=== PATIENT | female | born 1960 | race Caucasian/White ===

== ENCOUNTER 2023-11-15 12:37 | Inpatient (IN) | payer OTHER ==
[2023-11-15 13:23] VITALS: BMI 30.4
[2023-11-15] MEDS ORDERED: MAG HYDROX/AL HYDROX/SIMETH 30 ML UNIT-DOSE CUP PO PRN (14:59)
[2023-11-15] MEDS ORDERED: DICYCLOMINE HCL 10 MG CAPSULE PO PRN (14:59)
[2023-11-15] MEDS ORDERED: ACETAMINOPHEN 325 MG TABLET (FP) PO PRN (14:59)
[2023-11-15] MEDS ORDERED: IBUPROFEN 400 MG TABLET (FP) PO PRN (14:59)
[2023-11-15] MEDS ORDERED: METHOCARBAMOL 500 MG TABLET PO PRN (14:59)
[2023-11-15] MEDS ORDERED: hydrOXYzine PAMOATE 25 MG CAPSULE (FP) PO PRN (14:59)
[2023-11-15] MEDS ORDERED: LOPERAMIDE HCL 2 MG CAPSULE PO PRN (14:59)
[2023-11-15] MEDS ORDERED: BISMUTH SUBSALICYLATE 524 MG/30 ML PO PRN (14:59)
[2023-11-15] MEDS ORDERED: IBUPROFEN 600 MG TABLET (FP) PO PRN (14:59)
[2023-11-15] MEDS ORDERED: NALOXONE HCL (KLOXXADO) 8 MG SPRAY NS PRN (14:59)
[2023-11-15] MEDS ORDERED: MAGNESIUM HYDROX 2400MG/30ML ORAL SUSPENSION 30 ML CUP PO PRN (14:59)
[2023-11-15] MEDS ORDERED: BENZOCAINE/MENTHOL (CHLORASEPTIC ) LOZENGE MM PRN (14:59)
[2023-11-15] MEDS ORDERED: NALOXONE HCL 0.4 MG/ML VIAL IM PRN (14:59)
[2023-11-15] MEDS ORDERED: POLYETHYLENE GLYCOL (HEALTHYLAX) 3350 17 GM PACKET PO PRN (14:59)
[2023-11-15] MEDS ORDERED: guaiFENesin 600 MG TABLET.ER (FP) PO PRN (14:59)
[2023-11-15] MEDS ORDERED: ONDANSETRON *ODT* 4 MG TABLET SL PRN (14:59)
[2023-11-15] MEDS ORDERED: BENZONATATE 200 MG CAPSULE PO PRN (14:59)
[2023-11-15] MEDS ORDERED: LORazepam 1 MG TABLET PO PRN (14:59)
[2023-11-15] MEDS ORDERED: PRENATAL VITAMINS W/ FOLIC ACID TABLET (FP) PO ONE (15:53)
[2023-11-15] MEDS ORDERED: LORazepam 2 MG TABLET ONE (15:53)
[2023-11-15] MEDS: LORazepam 2 MG TABLET PO ONE (15:55)
[2023-11-15] MEDS: PRENATAL VITAMINS W/ FOLIC ACID TABLET (FP) PO SCH (15:56)
[2023-11-15] MEDS: PANTOPRAZOLE 40 MG TABLET PO SCH (17:30)
[2023-11-15] MEDS: ALBUTEROL SO4 HFA INHALER IH SCH (17:30)
[2023-11-15] MEDS: LORazepam 2 MG TABLET PO SCH (19:08)
[2023-11-15] MEDS: MELATONIN 5 MG TABLETS PO SCH (22:33)
[2023-11-15] MEDS: SPIRONOLACTONE 25 MG TABLET PO SCH (22:34)
[2023-11-15] MEDS: LURASIDONE HCL 40 MG TABLET PO SCH (22:34)
[2023-11-15] MEDS: DULoxetine HCL 20 MG CAPSULE.DR PO SCH (22:34)
[2023-11-15] MEDS: THIAMINE HCL 100 MG TABLET (FP) PO SCH (22:34)
[2023-11-15] MEDS: APIXABAN 5 MG TABLET PO SCH (22:34)
[2023-11-15] MEDS: RIFAXIMIN 550 MG TABLET PO SCH ×2 (23:28)
[2023-11-16] MEDS: LEVOTHYROXINE NA 25 MCG TABLET (FP) PO SCH (07:26)
[2023-11-16] MEDS: NICOTINE 14 MG/24 HOURS TOPICAL PATCH TD SCH (10:55)
[2023-11-16] MEDS: POLYETHYLENE GLYCOL (HEALTHYLAX) 3350 17 GM PACKET PO SCH (10:55)
[2023-11-16] MEDS: LORazepam 1 MG TABLET PO SCH (10:55)
[2023-11-16] MEDS: BICTEGRAV/EMTRICIT/TENOFOV (BIKTARVY) 50-200-25 MG TABLET PO SCH (11:00)
[2023-11-17] MEDS: LORazepam 1 MG TABLET PO SCH (05:56)
[2023-11-17] MEDS: PANTOPRAZOLE 40 MG TABLET PO SCH (16:53)
[2023-11-18] MEDS ORDERED: LORazepam 0.5 MG TABLET PO PRN
[2023-11-18] MEDS: LORazepam 0.5 MG TABLET PO SCH (05:38)
[2023-11-18 13:06] LABS: HEMATOCRIT 38.8 % (32.4-45.2); HEMOGLOBIN 13.3 GM/dL (10.7-15.3); MCH 33.1 pg (25.7-33.7); MCHC 34.4 g/dl (32.0-36.0); MEAN CELL VOLUME 96.2 fl (80-96); MEAN PLT VOLUME 10.4 fl (7.5-11.1); PLATELET COUNT 51 10^3/uL (134-434); RBC 4.03 M/mm3 (3.60-5.2); RDW 14.9 % (11.6-15.6); WHITE BLOOD COUNT 2.1 K/mm3 (4.0-10.0)
[2023-11-18 13:12] LABS: ALBUMIN 3.2 g/dl (3.4-5.0); BLOOD UREA NITROGEN 10.6 mg/dL (7-18); CALCIUM 8.3 mg/dL (8.5-10.1)
[2023-11-18 13:13] LABS: CREATININE 1.2 mg/dL (0.55-1.3)
[2023-11-18 13:15] LABS: TOT PROT 7.2 g/dl (6.4-8.2)
[2023-11-18 13:16] LABS: BILIRUBIN,TOTAL 1.1 mg/dL (0.2-1)
[2023-11-19] MEDS: LORazepam 0.5 MG TABLET PO ONE (05:55)
[2023-11-19 09:12] VITALS: BP 114/76; PULSE 86; RESP 18; TEMP 97.1
== END 2023-11-19 09:30 | disposition home or self-care (01) | DRG 897 ==
LOC: YASAS 12:37 → Y6N 15:07
PROVIDERS: ADMIT Allergy & Immunology; ATTEND Surgery
PROC: HZ2ZZZZ Detoxification Services for Substance Abuse Treatment (ICD-10-PCS; principal; 2023-11-15)
DX: F10.230 Alcohol dependence with withdrawal, uncomplicated (principal); F19.282 Other psychoactive substance dependence with psychoactive substance-induced sleep disorder; B20 Human immunodeficiency virus [HIV] disease; F12.20 Cannabis dependence, uncomplicated; F17.210 Nicotine dependence, cigarettes, uncomplicated; F31.9 Bipolar disorder, unspecified; F19.24 Other psychoactive substance dependence with psychoactive substance-induced mood disorder; I10 Essential (primary) hypertension; J45.20 Mild intermittent asthma, uncomplicated; E03.9 Hypothyroidism, unspecified; D70.2 Other drug-induced agranulocytosis; K29.20 Alcoholic gastritis without bleeding; K70.31 Alcoholic cirrhosis of liver with ascites; R79.89 Other specified abnormal findings of blood chemistry; Z88.0 Allergy status to penicillin; Z88.1 Allergy status to other antibiotic agents; Z88.2 Allergy status to sulfonamides
CPT/HCPCS: 36415; 80053; 82140; 85027; 86780; 93005; 93010